=== PATIENT | female | born 1945 | race Caucasian/White ===

== ENCOUNTER 2017-01-02 10:59 | Inpatient (IN) | payer MEDICARE, OTHER ==
[2017-01-02] MEDS ORDERED: ENOXAPARIN SODIUM SQ SCH (12:05)
[2017-01-02] MEDS ORDERED: Pepcid 20 MG PO PRN (12:05)
[2017-01-02] MEDS ORDERED: DUONEB 0.5-3 MG/3 ml Neb IH PRN (12:05)
[2017-01-02] MEDS: Sodium Chloride 0.9% 10 ML FLUSH Syringe IV SCH ×2 (12:10→22:21)
[2017-01-02] MEDS: NovoLOG Insulin SQ PRN ×3 (12:10→22:22)
[2017-01-02] MEDS: BUSPAR 5 MG PO SCH ×2 (15:09→22:21)
[2017-01-02] MEDS: NEURONTIN 300 MG PO SCH ×2 (15:09→22:21)
[2017-01-02] MEDS: NovoLOG 70/30 Mix SQ SCH (16:29)
[2017-01-02] MEDS: LASIX 80 MG PO SCH (16:29)
[2017-01-02] MEDS: Zosyn 3.375GM/100 Ml D5W 100 ML IV SCH (18:00)
[2017-01-02] MEDS: TYLENOL 325 MG PO PRN ×2 (18:13→22:19)
[2017-01-02] MEDS: PATIENT OWN MEDICATION IH SCH (18:24)
[2017-01-02] MEDS: VANCOCIN 1 GM VIAL*** 1.25 GM in Sodium Chloride 0.9% 250 ML 250 ML IV SCH (18:57)
[2017-01-02] MEDS: NYSTOP 30 GM CREAM TP SCH (22:18)
[2017-01-02] MEDS: Cardizem CD 120 MG PO SCH (22:20)
[2017-01-02] MEDS: Seroquel 100 MG PO SCH (22:21)
[2017-01-02] MEDS: Catapres 0.1 MG PO SCH (22:21)
[2017-01-02] MEDS: LUMIGAN 0.01% 2.5 ML OP SCH (22:21)
[2017-01-02] MEDS: Singulair 10 MG PO SCH (22:21)
[2017-01-02] MEDS: Aldactone 25 MG PO SCH (22:21)
[2017-01-03] MEDS: Zosyn 3.375GM/100 Ml D5W 100 ML IV SCH ×4 (00:42→18:22)
[2017-01-03] MEDS: VANCOCIN 1 GM VIAL*** 1.25 GM in Sodium Chloride 0.9% 250 ML 250 ML IV SCH ×2 (05:05→09:38)
[2017-01-03] MEDS: Sodium Chloride 0.9% 10 ML FLUSH Syringe IV SCH ×3 (05:05→21:50)
[2017-01-03 05:12] LABS: BASOPHIL % 0.2 % (0.0-0.4); Granulocytes % 70.9 % (36.0-66.0); Lymphocytes % 17.3 % (24.0-44.0); Mean Cell Volume 90.4 fl (78-100); Mean Corpuscular Hemoglobin 27.8 pg (26-32); Mean Platelet Volume 9.9 fl (6-9.5); Monocytes % 8.6 % (0.0-12.0); Platelet Count 359 K/mm3 (150-450); Red Blood Count 4.28 M/mm3 (4.1-5.4); Red Cell Distribution Width 14.7 % (11.5-14.0); White Blood Count 9.6 K/mm3 (4.0-10.5)
[2017-01-03] MEDS ORDERED: Lactated Ringers 1,000 ML IV ONE (05:44)
[2017-01-03] MEDS ORDERED: Lactated Ringers 1,000 ML IV SCH (07:00)
[2017-01-03] MEDS ORDERED: TROUGH DRUG LEVELS IJ ONE (08:30)
[2017-01-03] MEDS: NovoLOG 70/30 Mix SQ SCH ×2 (08:53→16:54)
[2017-01-03] MEDS: NYSTOP 30 GM CREAM TP SCH ×2 (09:45→21:55)
[2017-01-03] MEDS: LASIX 80 MG PO SCH ×2 (09:46→16:54)
[2017-01-03] MEDS: Prozac 20 MG PO SCH (09:46)
[2017-01-03] MEDS: Cardizem CD 120 MG PO SCH ×2 (09:46→21:49)
[2017-01-03] MEDS: Protonix 40MG Tablet PO SCH (09:46)
[2017-01-03] MEDS: ZOCOR 20MG PO SCH (09:46)
[2017-01-03] MEDS: BUSPAR 5 MG PO SCH ×3 (09:46→21:49)
[2017-01-03] MEDS: CLARITIN 10 MG PO SCH (09:46)
[2017-01-03] MEDS: Aldactone 25 MG PO SCH ×2 (09:46→21:50)
[2017-01-03] MEDS: NEURONTIN 300 MG PO SCH ×3 (09:46→21:49)
[2017-01-03] MEDS ORDERED: Aplisol ID SCH (10:00)
[2017-01-03] MEDS: NovoLOG Insulin SQ PRN (16:54)
[2017-01-03] MEDS: PATIENT OWN MEDICATION IH SCH ×2 (19:04→20:53)
[2017-01-03] MEDS: Seroquel 100 MG PO SCH (21:49)
[2017-01-03] MEDS: Catapres 0.1 MG PO SCH (21:50)
[2017-01-03] MEDS: TYLENOL 325 MG PO PRN (21:50)
[2017-01-03] MEDS: VANCOCIN 1 GM VIAL*** 1 GM in Sodium Chloride 0.9% 250 ML 250 ML IV SCH (21:50)
[2017-01-03] MEDS: Singulair 10 MG PO SCH (21:50)
[2017-01-03] MEDS: LUMIGAN 0.01% 2.5 ML OP SCH (21:55)
[2017-01-04] MEDS: Sodium Chloride 0.9% 10 ML FLUSH Syringe IV SCH ×3 (05:34→21:32)
[2017-01-04] MEDS: Zosyn 3.375GM/100 Ml D5W 100 ML IV SCH ×4 (05:34→17:14)
[2017-01-04] MEDS: PATIENT OWN MEDICATION IH SCH ×2 (07:20→21:17)
--- NOTE | 2017-01-04 08:32 | PCM.NOTE ---
Date and Time: 01/04/17828 Subjective Assessment: patient is doing well, she reports improvement in her left leg swelling and redness. she is tolerating po and has no complaints at this time. Objective Exam General Appearance: obese Neurologic Exam: alert, oriented x 3 Respiratory Exam: normal breath sounds, lungs clear, No respiratory distress Cardiovascular Exam: regular rate/rhythm, normal heart sounds Gastrointestinal/Abdomen Exam: soft, No tenderness, No mass Extremity Exam: other (left lower leg with mild erythema, trace swelling. wrap to foot intact) OBJECTIVE DATA Vital Signs: Vital Signs - 24 hr Temp Pulse Resp BP Pulse Ox 01/04/17 07:46 97.8 F 68 20 123/67 93 L 01/04/17 07:23 78 18 94 L 01/03/17 19:36 98.7 F 80 18 148/65 95 01/03/17 19:11 80 29 H 92 L Pain Assessment - Last Documented Pain Intensity 4 Pain Scale Used 0-10 Pain Scale Intake and Output: Intake & Output 01/01/17 01/02/17 01/03/17 01/04/17 11:59 11:59 11:59 11:59 Intake Total 2100 2720 Output Total 8550 5050 Balance -6450 -2330 Weight 126.325 kg 126.325 kg Lab Results: Accuchecks Date 01/03/17 Date 01/03/17 Date 01/03/17 Time 22:00 Time 16:30 Time 11:30 Accucheck Value: 117 Accucheck Value: 254 Accucheck Value: 196 Assessment/Plan (1) Diabetic foot ulcer Current Visit: No Status: Acute Assessment & Plan: doing well on current regimen, did not unwrap due to PT providing wound care and wants to stay wrapped at this time. Code(s): E11.621 - TYPE 2 DIABETES MELLITUS WITH FOOT ULCER; L97.509 - NON- PRESSURE CHRONIC ULCER OTH PRT UNSP FOOT W UNSP SEVERITY (2) Cellulitis of left leg Current Visit: No Status: Acute Assessment & Plan: improving greatly, continue zosyn and vanc Code(s): L03.116 - CELLULITIS OF LEFT LOWER LIMB (3) COPD (chronic obstructive pulmonary disease) Current Visit: No Status: Chronic (4) Diabetes mellitus type 2 Current Visit: No Status: Chronic Code(s): E11.9 - TYPE 2 DIABETES MELLITUS WITHOUT COMPLICATIONS
[2017-01-04] MEDS: NovoLOG 70/30 Mix SQ SCH ×2 (08:49→16:29)
[2017-01-04] MEDS: ENOXAPARIN SODIUM SQ SCH (08:49)
[2017-01-04] MEDS: CLARITIN 10 MG PO SCH (08:50)
[2017-01-04] MEDS: Protonix 40MG Tablet PO SCH (08:50)
[2017-01-04] MEDS: BUSPAR 5 MG PO SCH ×3 (08:50→21:32)
[2017-01-04] MEDS: Cardizem CD 120 MG PO SCH ×2 (08:50→21:32)
[2017-01-04] MEDS: Prozac 20 MG PO SCH (08:50)
[2017-01-04] MEDS: ZOCOR 20MG PO SCH (08:50)
[2017-01-04] MEDS: LASIX 80 MG PO SCH ×2 (08:50→16:29)
[2017-01-04] MEDS: Aldactone 25 MG PO SCH ×2 (08:50→21:32)
[2017-01-04] MEDS: NEURONTIN 300 MG PO SCH ×3 (08:50→21:34)
[2017-01-04] MEDS: NYSTOP 30 GM CREAM TP SCH ×2 (08:51→21:34)
[2017-01-04] MEDS: VANCOCIN 1 GM VIAL*** 1 GM in Sodium Chloride 0.9% 250 ML 250 ML IV SCH ×2 (10:27→21:27)
[2017-01-04] MEDS: NovoLOG Insulin SQ PRN ×2 (16:29→21:50)
[2017-01-04] MEDS: Catapres 0.1 MG PO SCH (21:32)
[2017-01-04] MEDS: LUMIGAN 0.01% 2.5 ML OP SCH (21:34)
[2017-01-04] MEDS: Seroquel 100 MG PO SCH (21:35)
[2017-01-04] MEDS: Singulair 10 MG PO SCH (21:35)
[2017-01-04] MEDS: TYLENOL 325 MG PO PRN (21:36)
[2017-01-05] MEDS: Zosyn 3.375GM/100 Ml D5W 100 ML IV SCH ×4 (00:13→17:19)
[2017-01-05] MEDS: Sodium Chloride 0.9% 10 ML FLUSH Syringe IV SCH ×3 (05:35→22:10)
[2017-01-05] MEDS: PATIENT OWN MEDICATION IH SCH ×2 (08:11→20:15)
[2017-01-05] MEDS: ZOCOR 20MG PO SCH (08:16)
[2017-01-05] MEDS: Cardizem CD 120 MG PO SCH ×2 (08:16→22:08)
[2017-01-05] MEDS: BUSPAR 5 MG PO SCH ×3 (08:16→22:08)
[2017-01-05] MEDS: Aldactone 25 MG PO SCH ×2 (08:16→22:08)
[2017-01-05] MEDS: LASIX 80 MG PO SCH ×2 (08:16→17:19)
[2017-01-05] MEDS: CLARITIN 10 MG PO SCH (08:16)
[2017-01-05] MEDS: ENOXAPARIN SODIUM SQ SCH (08:17)
[2017-01-05] MEDS: NYSTOP 30 GM CREAM TP SCH ×2 (08:17→22:07)
[2017-01-05] MEDS: Prozac 20 MG PO SCH (08:17)
[2017-01-05] MEDS: NEURONTIN 300 MG PO SCH ×3 (08:17→22:09)
[2017-01-05] MEDS: Protonix 40MG Tablet PO SCH (08:17)
[2017-01-05] MEDS: NovoLOG 70/30 Mix SQ SCH ×2 (08:18→17:18)
[2017-01-05] MEDS: VANCOCIN 1 GM VIAL*** 1 GM in Sodium Chloride 0.9% 250 ML 250 ML IV SCH ×2 (09:48→22:10)
[2017-01-05] MEDS: NovoLOG Insulin SQ PRN ×3 (12:22→22:21)
[2017-01-05] MEDS: Lomotil PO PRN ×2 (17:17→23:22)
[2017-01-05] MEDS: Catapres 0.1 MG PO SCH (22:08)
[2017-01-05] MEDS: Seroquel 100 MG PO SCH (22:09)
[2017-01-05] MEDS: Singulair 10 MG PO SCH (22:09)
[2017-01-05] MEDS: LUMIGAN 0.01% 2.5 ML OP SCH (22:09)
[2017-01-05] MEDS: TYLENOL 325 MG PO PRN (22:10)
[2017-01-06] MEDS: Zosyn 3.375GM/100 Ml D5W 100 ML IV SCH ×4 (00:40→16:47)
[2017-01-06] MEDS: Sodium Chloride 0.9% 10 ML FLUSH Syringe IV SCH ×3 (06:07→22:10)
[2017-01-06] MEDS: ENOXAPARIN SODIUM SQ SCH (07:42)
[2017-01-06] MEDS: ZOCOR 20MG PO SCH (07:42)
[2017-01-06] MEDS: Cardizem CD 120 MG PO SCH ×2 (07:42→22:08)
[2017-01-06] MEDS: Aldactone 25 MG PO SCH ×2 (07:43→22:08)
[2017-01-06] MEDS: Prozac 20 MG PO SCH (07:43)
[2017-01-06] MEDS: Protonix 40MG Tablet PO SCH (07:43)
[2017-01-06] MEDS: BUSPAR 5 MG PO SCH ×3 (07:43→22:08)
[2017-01-06] MEDS: NEURONTIN 300 MG PO SCH ×3 (07:43→22:09)
[2017-01-06] MEDS: NovoLOG 70/30 Mix SQ SCH ×2 (07:44→16:47)
[2017-01-06] MEDS: NYSTOP 30 GM CREAM TP SCH ×2 (07:44→22:09)
[2017-01-06] MEDS: LASIX 80 MG PO SCH ×2 (07:44→16:47)
[2017-01-06] MEDS: CLARITIN 10 MG PO SCH (07:44)
[2017-01-06] MEDS: VANCOCIN 1 GM VIAL*** 1 GM in Sodium Chloride 0.9% 250 ML 250 ML IV SCH ×2 (07:53→22:09)
[2017-01-06] MEDS: PATIENT OWN MEDICATION IH SCH ×2 (08:38→20:18)
[2017-01-06] MEDS: NovoLOG Insulin SQ PRN (16:48)
[2017-01-06] MEDS: Catapres 0.1 MG PO SCH (22:08)
[2017-01-06] MEDS: LUMIGAN 0.01% 2.5 ML OP SCH (22:08)
[2017-01-06] MEDS: Singulair 10 MG PO SCH (22:09)
[2017-01-06] MEDS: Seroquel 100 MG PO SCH (22:09)
[2017-01-06] MEDS: TYLENOL 325 MG PO PRN (22:10)
[2017-01-06] MEDS: Lomotil PO PRN (22:10)
[2017-01-07] MEDS: Zosyn 3.375GM/100 Ml D5W 100 ML IV SCH ×2 (00:53→05:52)
[2017-01-07] MEDS: Sodium Chloride 0.9% 10 ML FLUSH Syringe IV SCH ×2 (05:52→13:10)
[2017-01-07] MEDS: PATIENT OWN MEDICATION IH SCH ×2 (07:20→20:17)
[2017-01-07] MEDS: NovoLOG Insulin SQ PRN ×4 (07:38→22:11)
[2017-01-07] MEDS: NovoLOG 70/30 Mix SQ SCH ×2 (07:38→15:20)
[2017-01-07] MEDS: ROCEPHIN 1 Gm-D5w 50 ml Bag** 50 ML IV SCH (08:46)
[2017-01-07] MEDS: NEURONTIN 300 MG PO SCH ×3 (08:49→22:02)
[2017-01-07] MEDS: LASIX 80 MG PO SCH ×2 (08:49→15:20)
[2017-01-07] MEDS: Aldactone 25 MG PO SCH ×2 (08:49→22:02)
[2017-01-07] MEDS: Prozac 20 MG PO SCH (08:50)
[2017-01-07] MEDS: ZOCOR 20MG PO SCH (08:50)
[2017-01-07] MEDS: CLARITIN 10 MG PO SCH (08:50)
[2017-01-07] MEDS: Cardizem CD 120 MG PO SCH ×2 (08:50→22:00)
[2017-01-07] MEDS: BUSPAR 5 MG PO SCH ×3 (08:50→22:01)
[2017-01-07] MEDS: ENOXAPARIN SODIUM SQ SCH (08:51)
[2017-01-07] MEDS: Protonix 40MG Tablet PO SCH (08:51)
[2017-01-07] MEDS: NYSTOP 30 GM CREAM TP SCH (08:51)
--- NOTE | 2017-01-07 09:04 | PCM.NOTE ---
Date and Time: 01/07/17 0858 Subjective Assessment: She is feeling very well, would like to go home. Foot feeling much better. - Review of Systems Constitutional: No Fever Abdominal/Gastrointestinal: No Nausea, No Vomiting Objective Exam General Appearance: no apparent distress, obese Neurologic Exam: alert, oriented x 3, cooperative Skin Exam: warm, dry Respiratory Exam: normal breath sounds, lungs clear, No crackles/rales, No rhonchi, No wheezing Cardiovascular Exam: regular rate/rhythm, normal heart sounds Extremity Exam: other (LLE with very mild erythema anteriorly. Foot appears healed aside from very shallow approx 5 mm ulceration on plantar surface. no exudate.) OBJECTIVE DATA Vital Signs: Vital Signs - 24 hr Temp Pulse Resp BP Pulse Ox 01/07/17 07:21 75 16 95 01/07/17 07:00 98.0 F 62 20 124/56 91 L 01/06/17 20:18 90 18 92 L 01/06/17 19:00 98.6 F 82 16 138/73 93 L Pain Assessment - Last Documented Pain Intensity 0 Pain Scale Used 0-10 Pain Scale Intake and Output: Intake & Output 01/04/17 01/05/17 01/06/17 01/07/17 11:59 11:59 11:59 11:59 Intake Total 3200 2520 1120 1540 Output Total 5850 6050 2750 900 Balance -2120 -4820 -1130 640 Lab Results: Accuchecks Date 01/07/17 Date 01/06/17 Date 01/06/17 Time 07:25 Time 16:30 Time 11:30 Accucheck Value: 246 Accucheck Value: 315 Accucheck Value: 276 Accucheck Value: 191 Assessment/Plan (1) Cellulitis of left leg Current Visit: No Status: Acute Assessment & Plan: Much, much better. Likely home tomorrow on po antibiotics. Code(s): L03.116 - CELLULITIS OF LEFT LOWER LIMB (2) Diabetic foot ulcer Current Visit: No Status: Acute Assessment & Plan: The foot looks amazing compared to admission. The wounds are nearly healed. PT to see again today but likely home tomorrow. Code(s): E11.621 - TYPE 2 DIABETES MELLITUS WITH FOOT ULCER; L97.509 - NON- PRESSURE CHRONIC ULCER OTH PRT UNSP FOOT W UNSP SEVERITY (3) COPD (chronic obstructive pulmonary disease) Current Visit: No Status: Chronic Assessment & Plan: stable. (4) Diabetes mellitus type 2 Current Visit: No Status: Chronic Assessment & Plan: stable; uncontrolled, but she is somewhat brittle. Code(s): E11.9 - TYPE 2 DIABETES MELLITUS WITHOUT COMPLICATIONS
[2017-01-07] MEDS: VANCOCIN 1 GM VIAL*** 1 GM in Sodium Chloride 0.9% 250 ML 250 ML IV SCH ×2 (09:20→23:00)
[2017-01-07] MEDS: Catapres 0.1 MG PO SCH (22:00)
[2017-01-07] MEDS: Seroquel 100 MG PO SCH (22:00)
[2017-01-07] MEDS: LUMIGAN 0.01% 2.5 ML OP SCH (22:06)
[2017-01-08] MEDS ORDERED: PATIENT OWN MEDICATION IH SCH ×2 (07:00)
[2017-01-08] MEDS: NYSTOP 30 GM CREAM TP SCH ×2 (07:52→08:48)
[2017-01-08] MEDS: Sodium Chloride 0.9% 10 ML FLUSH Syringe IV SCH ×3 (07:53→13:09)
[2017-01-08] MEDS: Singulair 10 MG PO SCH (07:54)
[2017-01-08] MEDS: ROCEPHIN 1 Gm-D5w 50 ml Bag** 50 ML IV SCH (07:58)
[2017-01-08] MEDS: NovoLOG 70/30 Mix SQ SCH ×2 (08:01→17:21)
[2017-01-08] MEDS: VANCOCIN 1 GM VIAL*** 1 GM in Sodium Chloride 0.9% 250 ML 250 ML IV SCH (08:46)
[2017-01-08] MEDS: Lomotil PO PRN ×2 (08:46→15:37)
[2017-01-08] MEDS: ENOXAPARIN SODIUM SQ SCH (08:46)
[2017-01-08] MEDS: LASIX 80 MG PO SCH ×2 (08:47→17:21)
[2017-01-08] MEDS: NEURONTIN 300 MG PO SCH ×2 (08:47→13:29)
[2017-01-08] MEDS: CLARITIN 10 MG PO SCH (08:47)
[2017-01-08] MEDS: Protonix 40MG Tablet PO SCH (08:47)
[2017-01-08] MEDS: Prozac 20 MG PO SCH (08:47)
[2017-01-08] MEDS: ZOCOR 20MG PO SCH (08:47)
[2017-01-08] MEDS: Cardizem CD 120 MG PO SCH (08:47)
[2017-01-08] MEDS: Aldactone 25 MG PO SCH (08:47)
[2017-01-08] MEDS: BUSPAR 5 MG PO SCH ×2 (08:47→13:29)
[2017-01-08] MEDS: NovoLOG Insulin SQ PRN (11:53)
--- NOTE | 2017-01-08 18:29 | PCM.DS ---
Discharge Summary Date of Admission: 01/02/17 11:30 Admitting Physician: TORIBIO KIM Consults: Consults on Case 01/02/17 11:50 Consult Physician ROUTINE Primary Care Provider: TORIBIO KIM Allergies Allergies codeine [Codeine] Allergy (Mild, Verified 02/25/15 13:01) Hives fentanyl Allergy (Mild, Verified 02/25/15 13:01) Itching fluticasone propionate [From Advair Diskus] Allergy (Mild, Verified 02/25/15 13: 01) Swelling of Tongue and Lips hydrocodone bitartrate [From Vicodin] Allergy (Mild, Verified 02/25/15 13:01) Hives hydromorphone HCl [From Dilaudid] Allergy (Mild, Verified 02/25/15 13:01) Itching morphine Allergy (Mild, Verified 02/25/15 13:01) Rash rofecoxib [From Vioxx] Allergy (Verified 02/25/15 13:01) Swelling of Tongue and Lips aspirin Adverse Reaction (Mild, Verified 02/25/15 13:01) nose bleeding Hospital Summary - Hospital Course Hospital Course: Pt in swing bed on IV antibiotics for cellulitis and diabetic foot wound. Has recovered very well. Foot is looking great now, just one small defect present. Today pt is feeling well, sylvie po well. Having foot pain when she puts weight on it. - Vitals & Intake/Output Vital Signs: Vital Signs Temperature 98.4 F 01/08/17 07:00 Pulse Rate 65 01/08/17 07:00 Respiratory Rate 18 01/08/17 07:00 Blood Pressure 132/61 01/08/17 07:00 O2 Sat by Pulse Oximetry 94 L 01/08/17 07:00 Oxygen-Last Documented O2 Percentage 2 Liters = 28% Intake & Output: Intake & Output 01/06/17 01/07/17 01/08/17 01/09/17 11:59 11:59 11:59 11:59 Intake Total 1120 2040 2600 1160 Output Total 2750 900 2500 500 Balance -1630 1140 100 660 Weight 126.325 kg - Lab Result Diagrams: 01/03/17 04:36 Lab Results-Last 24 Hrs: Accuchecks Date 01/08/17 Date 01/08/17 Date 01/08/17 Date 01/07/17 Time 16:00 Time 11:55 Time 07:16 Time 22:00 Accucheck Value: 169 Accucheck Value: 214 Accucheck Value: 158 Accucheck Value: 252 Micro Results-Entire Visit: Accuchecks Date 01/08/17 Date 01/08/17 Date 01/08/17 Date 01/07/17 Time 16:00 Time 11:55 Time 07:16 Time 22:00 Accucheck Value: 169 Accucheck Value: 214 Accucheck Value: 158 Accucheck Value: 252 - Procedures and Test Procedures and Tests throughout Hospitalization: Therapy Orders & Screens 01/02/17 11:50 PT Eval & Treat (MD Order) ROUTINE Evaluate: Yes Treat: Yes Reason for Eval:: for strengthening and continueing wound care Oxygen NASAL CANNULA 2 lpm Comment: to keep sats >92% Diagnosis: infectioning requiring i.v. anbx 01/02/17 15:16 neb [Respiratory Nebulizer] UD Comment: Diagnosis: l hip replacement 01/02/17 19:00 Respiratory MDI BID Comment: Diagnosis: l hip replacement Discharge Exam General Appearance: no apparent distress, obese Neurologic Exam: alert, oriented x 3, cooperative Skin Exam: warm, dry Respiratory Exam: No respiratory distress, No stridor Extremity Exam: other (LLE with mild erythema anteriorly. foot is wrapped.) Back Exam: normal inspection Final Diagnosis/Problem List - Final Discharge Diagnosis/Problem (1) Cellulitis of left leg Current Visit: No Status: Acute Assessment & Plan: Home on po clindamycin. F/uw ith me in 1 week. She is to call meimmediately if not tolerating the antibiotic. (2) Diabetic foot ulcer Current Visit: No Status: Acute Assessment & Plan: as above. HH to dress it. (3) COPD (chronic obstructive pulmonary disease) Current Visit: No Status: Chronic Assessment & Plan: stable. (4) Diabetes mellitus type 2 Current Visit: No Status: Chronic Assessment & Plan: resume home meds. (5) Lymphadenopathy Current Visit: No Status: Acute Assessment & Plan: on CT abd/pelvis. Could be related to infection. Will recheck outpatient. - Discharge Disposition: Home, Self-Care Condition: Stable Prescriptions: New Clindamycin HCl 300 mg PO QID #56 capsule Continue Montelukast Sodium 10 mg [Singulair 10 MG] 10 mg PO HS Pravastatin Sodium 40 mg PO QAM Furosemide 80 mg [Lasix 80 mg] 80 mg PO BID Omeprazole 20 MG [Prilosec 20 mg] 20 mg PO BID Gabapentin 300 mg [Neurontin 300 mg] 300 mg PO TID Diltiazem HCl 120 mg [Cardizem CD 120 MG] 120 mg PO BID Clonidine HCl 0.3 mg PO HS Vitamin B Complex [B Complex] 1 tab PO DAILY Multivitamin [Iwm-Zsbijn-Ieytx] 1 tab PO DAILY Budesonide/Formoterol Fumarate [Symbicort 160-4.5 Mcg Inhaler] 1 dose IH BID Quetiapine Fumarate [Seroquel] 200 mg PO QHS #30 tablet Acyclovir 200 mg Cap [Zovirax 200 mg ] 200 mg PO BID Fluoxetine HCl [Prozac] 20 mg PO DAILY Bimatoprost 0.01% [Lumigan 0.01% 2.5 ml] 1 drop OP HS Nystatin Cream 30 gm [Nystop 30 gm Cream] 30 gm TP BID Albuterol/Ipratropium 3ml Neb* [DUONEB 0.5-3 MG/3 ml Neb] 3 ml IH DAILY PRN PRN PRN Reason: Shortness Of Breath Buspirone HCl 5 mg [Buspar 5 mg] 10 mg PO TID Loratadine 10 mg [Claritin 10 mg] 10 mg PO DAILY Spironolactone 25 mg [Aldactone 25 MG] 25 mg PO BID Insulin NPL/Insulin Lispro [Humalog Mix 75-25 Vial] 100 unit SQ BID Ranitidine HCl [Zantac 75] 75 mg PO BID PRN PRN Reason: Indigestion Instructions: Cellulitis -- Adult Follow up with: TORIBIO KIM [Primary Care Provider] - 01/15/17 10:45 am [facility] [Family Provider] - Forms: Discharge Instructions, Patient Portal Information
[2017-01-08 18:56] VITALS: BP 133/83; PULSE 90; O2SAT 92
[2017-01-13] MEDS ORDERED: Aplisol ID SCH (10:00)
== END 2017-01-08 18:55 | disposition home health service (06) | DRG 603 ==
LOC: MED SURG 11:30 → UNDOADMIN 11:32
PROVIDERS: ADMIT Family Medicine; ATTEND Family Medicine
DX: L03.116 Cellulitis of left lower limb (principal); E11.621 Type 2 diabetes mellitus with foot ulcer; Z79.4 Long term (current) use of insulin; L97.529 Non-pressure chronic ulcer of other part of left foot with unspecified severity; J44.9 Chronic obstructive pulmonary disease, unspecified; R59.1 Generalized enlarged lymph nodes; E11.40 Type 2 diabetes mellitus with diabetic neuropathy, unspecified; Z79.899 Other long term (current) drug therapy; M79.7 Fibromyalgia
CPT/HCPCS: 36415; 80048; 80202; 82962; 85025; 94640; 94760; A6457; J0696; J1650; J2543; J3370

== ENCOUNTER 2017-09-09 13:20 | Emergency (ER) | payer MEDICARE, OTHER ==
[2017-09-09] MEDS ORDERED: XYLOCAINE 1% HCL 20 ML MDV IJ ONE (13:21)
[2017-09-09] MEDS ORDERED: Rocephin 1000 MG INJ IM ONE (14:02)
--- NOTE | 2017-09-09 14:08 | ERPHSYRPT ---
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 fell through floor board injuring L tib/fib area 3 days ago. Pt. with skin tear to area and now with increasing redness/swelling to area. Denies any fever , chills, dizziness or weakness. Pt. states she is prone to cellulitis and started taking her Keflex. Pt. ambulating on L leg without difficulty. Tetanus UTD Method of Injury: direct blow, fell Occurred: days ago (3) Quality: intermittent, aching Severity of Pain-Max: mild Severity of Pain-Current: mild Lower Extremities Pain: leg: left (L tib/fib area) Modifying Factors: Improves With: immobilization (improves), movement (worsens) Associated Symptoms: No unable to bear weight Allergies/Adverse Reactions: codeine [Codeine] Allergy (Mild, Verified 09/09/17 13:39) Hives fentanyl Allergy (Mild, Verified 09/09/17 13:39) Itching fluticasone propionate [From Advair Diskus] Allergy (Mild, Verified 09/09/17 13: 39) Swelling of Tongue and Lips hydrocodone bitartrate [From Vicodin] Allergy (Mild, Verified 09/09/17 13:39) Hives hydromorphone HCl [From Dilaudid] Allergy (Mild, Verified 09/09/17 13:39) Itching morphine Allergy (Mild, Verified 09/09/17 13:39) Rash rofecoxib [From Vioxx] Allergy (Verified 09/09/17 13:39) Swelling of Tongue and Lips aspirin Adverse Reaction (Mild, Verified 09/09/17 13:39) nose bleeding Home Medications: Clonidine HCl 0.3 mg PO HS 09/28/13 [History] Diltiazem HCl 120 mg [Cardizem CD 120 MG] 120 mg PO BID 09/28/13 [History] Furosemide 80 mg [Lasix 80 mg] 80 mg PO BID 09/28/13 [History] Gabapentin 300 mg [Neurontin 300 mg] 300 mg PO TID 09/28/13 [History] Budesonide/Formoterol Fumarate [Symbicort 160-4.5 Mcg Inhaler] 1 dose IH BID [History] Multivitamin [Pjf-Ldattw-Flann] 1 tab PO DAILY 10/12/13 [History] Vitamin B Complex [B Complex] 1 tab PO DAILY 10/12/13 [History] Acyclovir 200 mg Cap [Zovirax 200 mg ] 200 mg PO BID 06/16/14 [History] Albuterol/Ipratropium 3ml Neb* [DUONEB 0.5-3 MG/3 ml Neb] 3 ml IH DAILY PRN PRN 02/25/15 [History] Bimatoprost 0.01% [Lumigan 0.01% 2.5 ml] 1 drop OP HS 02/25/15 [History] Fluoxetine HCl [Prozac] 20 mg PO DAILY 02/25/15 [History] Nystatin Cream 30 gm [Nystop 30 gm Cream] 30 gm TP BID 02/25/15 [History] Buspirone HCl 5 mg [Buspar 5 mg] 10 mg PO TID 04/16/15 [History] Insulin Lispro Protamin/Lispro [Humalog Mix 75-25 Vial] 100 unit SQ BID [History] Ranitidine HCl [Zantac 75] 75 mg PO BID PRN 12/28/16 [History] Hx Tetanus, Diphtheria Vaccination/Date Given: Yes Hx Influenza Vaccination/Date Given: Yes Hx Pneumococcal Vaccination/Date Given: Yes Immunizations Up to Date: Yes - Review of Systems Constitutional: No Fever, No Chills Eyes: No Symptoms Ears, Nose, & Throat: No Symptoms Respiratory: No Cough, No Dyspnea Cardiac: No Chest Pain, No Edema, No Syncope Abdominal/Gastrointestinal: No Abdominal Pain, No Nausea, No Vomiting, No Diarrhea Genitourinary Symptoms: No Dysuria Musculoskeletal: No Back Pain, No Neck Pain Skin: Cellulitis, Other (Skin tear to L tib/fib area), No Rash Neurological: No Dizziness, No Focal Weakness, No Sensory Changes Psychological: No Symptoms Endocrine: No Symptoms All Other Systems: Reviewed and Negative - Past Medical History Pertinent Past Medical History: Yes Neurological History: Peripheral Neuropathy ENT History: Cataracts, Glaucoma, Macular Degeneration Cardiac History: High Cholesterol, Hypertension Respiratory History: Asthma, COPD, Pneumonia, Other Endocrine Medical History: Diabetes Type II Musculoskeletal History: Arthritis, Fibromyalgia GI Medical History: GERD History: No Pertinent History Psycho-Social History: Anxiety, Depression Female Reproductive Disorders: No Pertinent History - Past Surgical History Past Surgical History: Yes Neuro Surgical History: No Pertinent History Cardiac: Cardiac Catheterization Respiratory: No Pertinent History Gastrointestinal: Appendectomy, Cholecystectomy Genitourinary: No Pertinent History Musculoskeletal: Other Female Surgical History: Section, Hysterectomy Other Surgical History: Knee replacements bilaterally - Social History Smoking Status: Never smoker Exposure to second hand smoke: No Drug Use: none Patient Lives Alone: No Significant Family History: heart disease, diabetes, hypertension - Female History Hx Now: No - Nursing Vital Signs Nursing Vital Signs: Initial Vital Signs Temperature 97.4 F 09/09/17 13:36 Pulse Rate 79 09/09/17 13:36 Respiratory Rate 18 09/09/17 13:36 Blood Pressure 133/63 09/09/17 13:36 O2 Sat by Pulse Oximetry 93 L 09/09/17 13:36 Pain Scale Pain Intensity 6 - Physical Exam General Appearance: alert Eyes, Ears, Nose, Throat Exam: moist mucous membranes Neck Exam: non-tender, supple Cardiovascular/Respiratory Exam: chest non-tender, normal breath sounds, regular rate/rhythm, no respiratory distress Gastrointestinal/Abdominal Exam: non-tender, guarding Back Exam: normal inspection, No vertebral tenderness Neuro/Tendon Exam: normal sensation, normal motor functions Mental Status Exam: alert, oriented x 3, cooperative Skin Exam: warm, dry, other (Skin tear to L tib/fib area with surrounding erythema) SpO2: 93 Oxygen Delivery: Room Air - Course Nursing assessment & vital signs reviewed: Yes Ordered Tests: Medication Summary Generic Name Dose Route Start Last Admin Trade Name Freq PRN Reason Stop Dose Admin Ceftriaxone Sodium 1,000 mg 09/09/17 14:02 Rocephin 1000 Mg Inj IM 09/09/17 14:03 STAT ONE - Progress Progress Note: 09/09/17 14:08 Pt. given Rocephin IM Counseled pt/family regarding: diagnosis - Departure Time of Disposition: 14:08 Departure Disposition: Home Clinical Impression: Cellulitis Condition: Stable Critical Care Time: No Referrals: TORIBIO KIM [Primary Care Provider] - Instructions: Cellulitis -- Adult Additional Instructions: Motrin or Tylenol for fever/pain Return for worse pain, swelling, redness, fever, dizziness, weakness or any problems Prescriptions: Cephalexin Mh 500 mg [Keflex 500 mg] 500 mg PO QID #40 capsule
[2017-09-09] MEDS ORDERED: Rocephin 1000 MG INJ ONE (14:11)
[2017-09-09] MEDS ORDERED: BACIGUENT PACKET ONE (14:44)
[2017-09-09 14:56] VITALS: BP 147/80; PULSE 78; O2SAT 97
[2017-09-09] MEDS ORDERED: BACIGUENT PACKET TP ONE (15:34)
== END 2017-09-09 15:07 | disposition home or self-care (01) ==
LOC: ED 13:20
DX: L03.116 Cellulitis of left lower limb (principal); W13.3XXA Fall through floor, initial encounter; S81.812A Laceration without foreign body, left lower leg, initial encounter; Z79.899 Other long term (current) drug therapy; E78.00 Pure hypercholesterolemia, unspecified; I10 Essential (primary) hypertension; J44.9 Chronic obstructive pulmonary disease, unspecified; E11.9 Type 2 diabetes mellitus without complications; Z79.4 Long term (current) use of insulin
CPT/HCPCS: 99283; J0696; A9270-GY

== ENCOUNTER 2017-09-15 14:34 | Emergency (ER) | payer MEDICARE, OTHER ==
[2017-09-15 14:50] VITALS: O2SAT 92
[2017-09-15] MEDS ORDERED: Rocephin 1000 MG INJ IM ONE (15:04)
[2017-09-15] MEDS ORDERED: XYLOCAINE 1% HCL 20 ML MDV ONE (15:07)
[2017-09-15] MEDS ORDERED: Rocephin 1000 MG INJ ONE (15:07)
--- NOTE | 2017-09-15 15:11 | ERPHSYRPT ---
- History of Present Illness Time Seen by Provider: 09/15/17 15:05 Source: patient Physician History: 72-year-old female with significant past medical history of morbid obesity, diabetes, hypertension, fell, week and a half ago and had a injury on her left leg. She was seen in the emergency room 10 days ago and at that time. She was started on cephalexin 500 mg 4 times a day for 10 days. 3 days after the abdomen visit. Patient went to see her primary care physician and was started on doxycycline. She was seen again 4 days ago in the emergency room and at that time. X-ray was done and is did not show any fracture on her left leg. Today patient came back again with the swelling on left leg and redness those. She says that it has gone down little bit and last ER visit. Patient has no way of transportation. She denies any other symptoms including fever, chills, nausea, vomiting. Method of Injury: fell Occurred: last week Severity of Pain-Max: mild Severity of Pain-Current: mild Lower Extremities Pain: leg: left Allergies/Adverse Reactions: codeine [Codeine] Allergy (Mild, Verified 09/09/17 13:39) Hives fentanyl Allergy (Mild, Verified 09/09/17 13:39) Itching fluticasone propionate [From Advair Diskus] Allergy (Mild, Verified 09/09/17 13: 39) Swelling of Tongue and Lips hydrocodone bitartrate [From Vicodin] Allergy (Mild, Verified 09/09/17 13:39) Hives hydromorphone HCl [From Dilaudid] Allergy (Mild, Verified 09/09/17 13:39) Itching morphine Allergy (Mild, Verified 09/09/17 13:39) Rash rofecoxib [From Vioxx] Allergy (Verified 09/09/17 13:39) Swelling of Tongue and Lips aspirin Adverse Reaction (Mild, Verified 09/09/17 13:39) nose bleeding Home Medications: Clonidine HCl 0.3 mg PO HS 09/28/13 [History] Diltiazem HCl 120 mg [Cardizem CD 120 MG] 120 mg PO BID 09/28/13 [History] Furosemide 80 mg [Lasix 80 mg] 80 mg PO BID 09/28/13 [History] Gabapentin 300 mg [Neurontin 300 mg] 300 mg PO TID 09/28/13 [History] Budesonide/Formoterol Fumarate [Symbicort 160-4.5 Mcg Inhaler] 1 dose IH BID [History] Multivitamin [Fwk-Khyisd-Wizys] 1 tab PO DAILY 10/12/13 [History] Vitamin B Complex [B Complex] 1 tab PO DAILY 10/12/13 [History] Acyclovir 200 mg Cap [Zovirax 200 mg ] 200 mg PO BID 06/16/14 [History] Albuterol/Ipratropium 3ml Neb* [DUONEB 0.5-3 MG/3 ml Neb] 3 ml IH DAILY PRN PRN 02/25/15 [History] Bimatoprost 0.01% [Lumigan 0.01% 2.5 ml] 1 drop OP HS 02/25/15 [History] Fluoxetine HCl [Prozac] 20 mg PO DAILY 02/25/15 [History] Nystatin Cream 30 gm [Nystop 30 gm Cream] 30 gm TP BID 02/25/15 [History] Buspirone HCl 5 mg [Buspar 5 mg] 10 mg PO TID 04/16/15 [History] Insulin Lispro Protamin/Lispro [Humalog Mix 75-25 Vial] 100 unit SQ BID [History] Ranitidine HCl [Zantac 75] 75 mg PO BID PRN 12/28/16 [History] Hx Tetanus, Diphtheria Vaccination/Date Given: Yes Hx Influenza Vaccination/Date Given: Yes Hx Pneumococcal Vaccination/Date Given: Yes - Review of Systems Constitutional: No Symptoms Skin: Cellulitis (left leg) - Past Medical History Pertinent Past Medical History: Yes Neurological History: Peripheral Neuropathy ENT History: Cataracts, Glaucoma, Macular Degeneration Cardiac History: High Cholesterol, Hypertension Respiratory History: Asthma, COPD, Pneumonia, Other Endocrine Medical History: Diabetes Type II Musculoskeletal History: Arthritis, Fibromyalgia GI Medical History: GERD History: No Pertinent History Psycho-Social History: Anxiety, Depression Female Reproductive Disorders: No Pertinent History - Past Surgical History Past Surgical History: Yes Neuro Surgical History: No Pertinent History Cardiac: Cardiac Catheterization Respiratory: No Pertinent History Gastrointestinal: Appendectomy, Cholecystectomy Genitourinary: No Pertinent History Musculoskeletal: Other Female Surgical History: Section, Hysterectomy Other Surgical History: Knee replacements bilaterally - Social History Smoking Status: Never smoker Exposure to second hand smoke: No Drug Use: none Patient Lives Alone: No Significant Family History: heart disease, diabetes, hypertension - Female History Hx Now: No - Nursing Vital Signs Nursing Vital Signs: Initial Vital Signs Temperature 98.2 F 09/15/17 14:49 Pulse Rate 84 09/15/17 14:49 Respiratory Rate 20 09/15/17 14:49 Blood Pressure 135/47 09/15/17 14:49 O2 Sat by Pulse Oximetry 92 L 09/15/17 14:49 Pain Scale Pain Intensity 7 - Physical Exam General Appearance: no apparent distress Neck Exam: normal inspection Cardiovascular/Respiratory Exam: chest non-tender, normal breath sounds, heart sounds normal Gastrointestinal/Abdominal Exam: non-tender Legs Exam: left leg: soft tissue tenderness, swelling Neuro/Tendon Exam: normal sensation Mental Status Exam: alert, oriented x 3 Skin Exam: other (swollen mid left leg with superficial ulcer) SpO2: 92 Oxygen Delivery: Room Air - Course Nursing assessment & vital signs reviewed: Yes Ordered Tests: Medication Summary Generic Name Dose Route Start Last Admin Trade Name Freq PRN Reason Stop Dose Admin Ceftriaxone Sodium 2,000 mg 09/15/17 15:04 Rocephin 1000 Mg Inj IM 09/15/17 15:05 STAT ONE - Progress Progress: unchanged Progress Note: We will schedule home health, so that patient can get ceftriaxone 1 g intramuscular daily for next 10 days. Patient states that she already has an appointment with Dr. Gonsalves in 4 days, she is strongly advised to keep that appointment. She is also advised that if she develops fever, chills, then she needs to come to the emergency room and see Will need further surgical intervention. Counseled pt/family regarding: diagnosis, need for follow-up - Departure Time of Disposition: 15:17 Departure Disposition: Home Clinical Impression: Diabetes mellitus type 2, Cellulitis of left leg Diabetic neuropathy Qualifiers: Diabetes mellitus type: type 2 Diabetes mellitus complication detail: diabetic polyneuropathy Qualified Code(s): E11.42 - Type 2 diabetes mellitus with diabetic polyneuropathy Condition: Stable Critical Care Time: No Referrals: TORIBIO GONSALVES [Primary Care Provider] - Followup in 3 days w/ PCP Instructions: Cellulitis -- Adult Additional Instructions: We will schedule home health, so that you can get ceftriaxone 1 g intramuscular daily for next 10 days. Patient states that she already has an appointment with Dr. Gonsalves in 4 days, You are strongly advised to keep that appointment. If you develops fever, chills, then you needs to come to the emergency room and you may need further surgical intervention. Please follow the instructions given to you. Please take your medication as prescribed if given. If symptoms recur or get worse, come back to the emergency room if you cannot reach your primary care physician, or call your primary care physician for an appointment. Again if your symptoms get worse, come back to the emergency room. Thanks for visiting emergency room, and let us take care of you. Prescriptions: Ceftriaxone Sod 1000 mg Inj [Rocephin 1000 MG INJ] 1 g IM DAILY #10 vial
[2017-09-15] MEDS ORDERED: BACIGUENT PACKET TP ONE (15:38)
[2017-09-15] MEDS ORDERED: BACIGUENT PACKET ONE (15:39)
[2017-09-15 16:01] VITALS: BP 136/59; PULSE 76
== END 2017-09-15 15:55 | disposition home or self-care (01) ==
LOC: ED 14:34
DX: E11.42 Type 2 diabetes mellitus with diabetic polyneuropathy (principal); L03.116 Cellulitis of left lower limb; I10 Essential (primary) hypertension; E78.00 Pure hypercholesterolemia, unspecified; Z79.899 Other long term (current) drug therapy; Z79.4 Long term (current) use of insulin
CPT/HCPCS: 96372; 99284; J0696; A9270-GY